=== PATIENT | male | born 2000 | race Hispanic/Latino ===

== ENCOUNTER 2021-03-15 04:25 | Emergency (ER) | payer OTHER ==
[~2021-03-15] VITALS: Ht 170.2 cm; Wt 80.0 kg
[2021-03-15 06:44] VITALS: BP 120/75
== END 2021-03-15 06:50 | disposition home or self-care (01) | DRG 605 ==
LOC: ED 04:25
DX: S00.33XA Contusion of nose, initial encounter (principal); S50.02XA Contusion of left elbow, initial encounter; S80.02XA Contusion of left knee, initial encounter; S01.511A Laceration without foreign body of lip, initial encounter; V44.5XXA Car driver injured in collision with heavy transport vehicle or bus in traffic accident, initial encounter